=== PATIENT | female | born 1985 | race Caucasian/White ===

== ENCOUNTER → 2017-08-29 | Outpatient (CLI) | payer OTHER ==
[2015-12-13 13:13] VITALS: BP 111/78
[~2017-08-29] MED LIST: HYDR-971 PO; PRED20TA PO
--- NOTE | 2017-08-30 08:41 | RAD ---
Pelvis with right hip, 08/29/2017: History: Fall, pain No fracture or dislocation is identified. The hip joints are well-maintained. An IUD is projected over the mid pelvis. IMPRESSION: No acute pelvic or right hip abnormality is detected.
== END | disposition home or self-care (01) ==
LOC: RAD 17:24
PROVIDERS: ATTEND Nurse Practitioner Family
DX: M25.551 Pain in right hip (principal); Z91.81 History of falling
CPT/HCPCS: 73502